=== PATIENT | female | born 1930 | race Caucasian/White ===

== ENCOUNTER 2018-06-20 04:00 | Emergency (ER) | payer MEDICARE ==
[2018-06-20 04:53] LABS: #Basophils 0.1 thou/uL (0.0-0.2); #Eosinphils 0.5 thou/uL (0.0-0.7); #Lymphocytes 2.3 thou/uL (1.20-3.40); #Monocytes 0.6 thou/uL (0.11-0.59); #Neutrophils 3.7 thou/uL (1.40-6.50); %Basophils 0.8 % (0.0-1.0); %Eosinophils 7.1 % (0.0-10.0); %Neutrophils 51.1 % (42.0-75.0); Hemoglobin 10.5 g/dL (12.0-16.0); Mean Corpuscular HGB CONC 32.4 g/dL (32.0-36.0); Mean Corpuscular Hemoglobin 26.7 pg (27.0-31.0); Mean Corpuscular Volume 82.3 fL (78.0-98.0); Mean Platelet Volume 6.6 fL (7.4-10.4); Platelet Count 279 thou/uL (130-400); RBC Distribution Width 16.8 % (11.5-14.5); Red Blood Cell (RBC) Count 3.93 mill/uL (4.20-5.40); White Blood Cell (WBC) Count 7.2 thou/uL (4.8-10.8)
[2018-06-20 05:01] LABS: INR-International Normal Ratio 0.9; Prothrombin Time 12.6 SEC (12.0-14.7)
[2018-06-20 05:11] LABS: ALT (SGPT) 7 U/L (8-55); AST (SGOT) 12 U/L (5-34); Albumin 2.9 g/dL (3.4-4.8); Alkaline Phosphatase 125 U/L (40-150); Anion Gap 11 mmol/L (10-20); BUN (Urea Nitrogen) 18 mg/dL (9.8-20.1); Bilirubin, Total 0.3 mg/dL (0.2-1.2); Calc. Creatinine Clearance 0 mL/min (70-130); Calcium 8.6 mg/dL (7.8-10.44); Chloride 105 mmol/L (98-107); Estimated GFR-MDRD 85; Globulin 3.5 g/dL (2.4-3.5); Glucose 80 mg/dL (83-110); Potassium 3.3 mmol/L (3.5-5.1); Protein, Total 6.4 g/dL (6.0-8.3); Sodium 141 mmol/L (136-145)
[2018-06-20 05:12] LABS: Carbon Dioxide 28 mmol/L (23-31)
[2018-06-20] MEDS ORDERED: Adacel (T-DAP) 0.5 ML VIAL ONE (06:45)
--- NOTE | 2018-06-20 08:35 | RAD ---
CHEST 1 VIEW: Date: 06/12/18 HISTORY: Fall. Pain. FINDINGS: Chronic changes of the lung parenchyma. Stable left-sided effusion. Chronic changes of the osseous st ructures. There is stable hyperinflation. Stable rightward displacement of the cardiomediastinal silhouette. Th ere is no pneumothorax. IMPRESSION: No significant change. POS: [facility]
--- NOTE | 2018-06-20 08:42 | RAD ---
1 VIEW PELVIS: Date: 06/20/18 HISTORY: Patient fell from bed. COMPARISON: None. FINDINGS: Markedly limited evaluation of the pelvis. If there is concern, consider CT. Uncomplicated left hip a rthroplasty is noted. IMPRESSION: Suboptimal evaluation. If there is concern, consider CT. CODE T. POS: [facility]
--- NOTE | 2018-06-20 08:46 | CT ---
PRELIMINARY REPORT/[facility]/EMERGENCY AFTER HOURS PROCEDURE: EXAM: CT Cervical Spine Without Intravenous Contrast CLINICAL HISTORY: 87 years old, female; Injury or trauma; Fall; Initial encounter; Laceration; Without foreign body; In jury date: 06-20-18 TECHNIQUE: Axial computed tomography images of the cervical spine without intravenous contrast. All CT scans at this facility use at least one of these dose optimization techniques: automated exposure control; mA and/or kV adjustment per patient size (includes targeted exams where dose is matched to clinical bao cation); or iterative reconstruction. COMPARISON: No relevant prior studies available. FINDINGS: Scanning from the skull base to the bottom of T5. On axial CT images, no definite acute fracture is visible. Sagittal and coronal reconstructions show no fracture or post traumatic subluxation. 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 Mild, 1 -- 2 mm of anterior subluxation at several levels. No visible fracture. Prominent facet joint arthritis at these levels is the likely etiology. No definite/significant disc herniation by CT, MRI could be more sensitive if clinically indicated. IMPRESSION: No definite acute fracture or post traumatic subluxation by CT. Other findings discussed above. Thank you for allowing us to participate in the care of your patient. Dictated and Authenticated by: Jorge Reeder MD 06/20/2018 6:22 AM Central Time ([place] & [place]) FINAL REPORT CT CERVICAL SPINE WITHOUT CONTRAST: Date: 06/20/18 HISTORY: Fall. Trauma. Pain. COMPARISON: 05/30/17. TECHNIQUE: CT cervical spine is performed without contrast. Reformatted images are submitted for interpretation. FINDINGS: Evaluation is somewhat limited by patient position. No evidence of fracture or dislocation. There are degenerative changes throughout the cervical spine. Leftward curvature of the cervical spine is pres umed to be positional. This report is in agreement with the preliminary report by Naif. POS: [facility]
--- NOTE | 2018-06-20 08:48 | CT ---
PRELIMINARY REPORT/[facility]/EMERGENCY AFTER HOURS PROCEDURE: EXAM: CT Head Without Intravenous Contrast CLINICAL HISTORY: 87 years old, female; Injury or trauma; Fall; Initial encounter; Laceration; Without loss of consciou sness; Without residual foreign body; Eye; Left; Injury date: 06-20-18; Injury details: Fell from bed. Lac. Beside lt eye TECHNIQUE: Axial computed tomography images of the head/brain without intravenous contrast. All CT scans at this facility use at least one of these dose optimization techniques: automated exposure control; mA and/ or kV adjustment per patient size (includes targeted exams where dose is matched to clinical indicati on); or iterative reconstruction. COMPARISON: No relevant prior studies available. FINDINGS: No definite acute skull fracture. Included paranasal sinuses are essentially clear. Prior left craniotomy. No acute intracranial hemorrhage or mass effect. Ventricle size is within normal limits for age and degree of atrophy. There is prominent, relatively symmetrical decreased attenuation in the periventricular white matter, likely from microvascular disease. 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 No definite acute infarct by CT. IMPRESSION: No acute intracranial bleed or mass effect. 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 Other details discussed above. Thank you for allowing us to participate in the care of your patient. Dictated and Authenticated by: Jorge Reeder MD 06/20/2018 6:14 AM Central Time ([place] & [place]) FINAL REPORT CT BRAIN WITHOUT CONTRAST: Date: 06/20/18 HISTORY: Fall. Laceration. COMPARISON: CT dated 06/10/17. FINDINGS/IMPRESSION: Findings and impression are concordant with the preliminary report by Naif. There is also large left infraorbital cheek soft tissue contusion and laceration. POS: [facility]
== END 2018-06-20 08:55 ==
LOC: MADERS 04:00
DX: S01.81XA Laceration without foreign body of other part of head, initial encounter (principal); E78.00 Pure hypercholesterolemia, unspecified; G30.9 Alzheimer's disease, unspecified; F02.80 Dementia in other diseases classified elsewhere, unspecified severity, without behavioral disturbance, psychotic disturbance, mood disturbance, and anxiety; I10 Essential (primary) hypertension; Z23 Encounter for immunization; W06.XXXA Fall from bed, initial encounter
CPT/HCPCS: 12011; 36415; 70450; 71045; 72125; 72170; 80053; 85025; 85610; 90471; 90715